=== PATIENT | male | born 1950 | race Two or more races ===

== ENCOUNTER 2025-02-02 09:15 | Inpatient (IN) | payer OTHER ==
[~2025-02-02] VITALS: Ht 162.6 cm; Wt 77.1 kg
[2025-02-23 10:09] LABS: BASO % 0.5 % (0.1-1.2); EOS # 0.16 (0.04-0.54); EOS % 2.6 % (0.7-7.0); LYMPH # 1.48 (1.18-3.74); LYMPH % 24.1 % (19.3-53.1); MEAN PLATELET VOLUME 12.60 fl (9.4-12.4); MONO # 0.76 (0.24-0.82); NEUT # 3.69 (1.56-6.13); NEUT % 60.2 % (34.0-71.1); RED CELL DISTRIBUTION WIDTH 13.3 % (11.6-14.4)
[2025-02-23 10:10] LABS: URINE APPEARANCE Clear; URINE BILIRRUBIN Negative (NEGATIVE); URINE BLOOD Negative; URINE COLOR Yellow; URINE GLUCOSE Negative (NEGATIVE); URINE KETONE Negative (NEGATIVE); URINE LEUKOCYTE Negative; URINE NITRATE Negative; URINE PROTEIN Negative (NEGATIVE); URINE UROBILINOGEN 0.2 E.U./dl
[2025-02-23 10:13] LABS: URINE BACTERIA 4.7 uL (0.0-1933); URINE RBC 3.5 uL (0.0-20.8)
[2025-02-23 10:14] LABS: MONO % 12.4 % (4.7-12.5)
[2025-02-23] MEDS ORDERED: ROSUVASTATIN CA40 MG PO (10:20)
[2025-02-23] MEDS ORDERED: NORVASC2.5 MG PO (10:20)
[2025-02-23] MEDS ORDERED: ALTACE2.5 MG PO (10:20)
[2025-02-23] MEDS ORDERED: METFORMIN HCL500 M3 PO (10:21)
[2025-02-23] MEDS ORDERED: HYDROCHLOROTHIA25 MG PO (10:21)
[2025-02-23 10:27] VITALS: BP 160/60
[2025-02-23 10:32] LABS: INR 0.99
[2025-02-23 11:13] LABS: ALT/SGPT 31.0 U/L (12-78); AST/SGOT 30.0 U/L (15-37); BILIRUBIN TOTAL 0.52 mg/dL (0.3-1.2); BUN CREA RATIO 25.0 (7.0-25.0); CREATININE SERUM 0.72 mg/dL (0.70-1.30); GFR 106.14; GLOBULINA 3.7 G/DL (2.4-3.5); GLUCOSE FASTING 99.0 mg/dL (65-100); OSMOLALITY SERUM 287.0 MOSM/KG (275-295)
[2025-02-23 11:58] LABS: URINE CAST 0.00 uL (0.0-1.40); URINE EPITHELIAL CELLS 0.9 uL (0.0-38.8); URINE WBC 0.9 uL (0.0-23.2)
[2025-03-02] MEDS ORDERED: CEFTRIAXONE SODIUM 2,000 MG VIAL IV ONE (09:45)
[2025-03-02] MEDS ORDERED: BUPIVACAINE HCL 30 ML VIAL IJ ONE (09:45)
[2025-03-02] MEDS ORDERED: LIDOCAINE HCL 1%/EPINEPHRINE 20ML VIAL IJ ONE (09:45)
[2025-03-02] MEDS ORDERED: METRONIDAZOLE/SODIUM CHLORIDE 500 MG/100 ML PIGGYBACK IV ONE (09:45)
[2025-03-02] MEDS ORDERED: MORPHINE SULFATE 4 MG/ML VIAL IV ONE (11:45)
[2025-03-02] MEDS ORDERED: ONDANSETRON HCL 2 MG/ML VIAL IV PRN (12:15)
[2025-03-02] MEDS ORDERED: 0.9 % SODIUM CHLORIDE 1,000 ML IV SCH (12:15)
[2025-03-02] MEDS ORDERED: DEXTROSE 50 % IN WATER 0.5 G/ML VIAL IV PRN (12:15)
[2025-03-02] MEDS ORDERED: OxyCODONE HCL 5 MG TABLET (ROXICODONE) PO PRN (12:15)
[2025-03-02] MEDS ORDERED: MORPHINE SULFATE 4 MG/ML CARTRIDGE IV PRN (12:15)
[2025-03-02] MEDS ORDERED: HYOSCYAMINE SULFATE 0.125 MG TAB.SUBL SL SCH (13:00)
[2025-03-02] MEDS ORDERED: SIMETHICONE 125 MG CAPSULE PO SCH (13:00)
[2025-03-02 13:15] LABS: BASO % 0.2 % (0.1-1.2); EOS # 0.01 (0.04-0.54); EOS % 0.1 % (0.7-7.0); LYMPH # 0.69 (1.18-3.74); LYMPH % 5.7 % (19.3-53.1); MEAN PLATELET VOLUME 12.50 fl (9.4-12.4); MONO # 0.53 (0.24-0.82); MONO % 4.4 % (4.7-12.5); NEUT # 10.81 (1.56-6.13); NEUT % 89.4 % (34.0-71.1); RED CELL DISTRIBUTION WIDTH 13.2 % (11.6-14.4)
[2025-03-02] MEDS ORDERED: ACETAMINOPHEN 500 MG GEL..CAP PO SCH (14:00)
[2025-03-02 15:25] VITALS: BP 148/72; O2SAT 95
[2025-03-02] MEDS ORDERED: ENALAPRILAT DIHYDRATE 1.25 MG/ML VIAL IV PRN (16:30)
[2025-03-02] MEDS ORDERED: ROSUVASTATIN CALCIUM 20 MG TABLET PO SCH (17:00)
[2025-03-02] MEDS ORDERED: GABAPENTIN 300 MG CAPSULE PO SCH (17:00)
[2025-03-02] MEDS ORDERED: CELECOXIB 200 MG CAPSULE PO SCH (17:00)
[2025-03-02] MEDS ORDERED: POLYETHYLENE GLYCOL 3350 17 GM BLIST.PACK PO SCH (17:00)
[2025-03-02] MEDS ORDERED: METOCLOPRAMIDE HCL 5 MG/ML VIAL IV SCH (17:00)
[2025-03-02] MEDS ORDERED: FAMOTIDINE/PF 20 MG/2 ML VIAL IV PUSH SCH (21:00)
[2025-03-03 00:40] VITALS: BP 124/64; O2SAT 100
[2025-03-03 07:00] LABS: BASO % 0.3 % (0.1-1.2); EOS # 0.06 (0.04-0.54); EOS % 0.6 % (0.7-7.0); LYMPH # 1.27 (1.18-3.74); LYMPH % 13.7 % (19.3-53.1); MEAN PLATELET VOLUME 13.70 fl (9.4-12.4); MONO # 0.90 (0.24-0.82); MONO % 9.7 % (4.7-12.5); NEUT # 6.99 (1.56-6.13); NEUT % 75.4 % (34.0-71.1); RED CELL DISTRIBUTION WIDTH 13.4 % (11.6-14.4)
[2025-03-03 07:29] LABS: BUN CREA RATIO 22.0 (7.0-25.0); CREATININE SERUM 0.89 mg/dL (0.70-1.30); GFR 83.11; GLUCOSE FASTING 75.0 mg/dL (65-100); OSMOLALITY SERUM 288.0 MOSM/KG (275-295)
[2025-03-03 08:00] VITALS: BP 125/64; O2SAT 99
[2025-03-03] MEDS ORDERED: HYDROCHLOROTHIAZIDE 25 MG TABLET PO SCH (09:00)
[2025-03-03] MEDS ORDERED: AMLODIPINE BESYLATE 2.5 MG TABLET PO SCH (09:00)
[2025-03-03] MEDS ORDERED: LACTULOSE 20 G/30 ML BLIST.PACK PO SCH (09:00)
[2025-03-03] MEDS ORDERED: LACTOBACILLUS ACIDOPHILUS 1 CAP CAP PO SCH (09:00)
[2025-03-03] MEDS ORDERED: RAMIPRIL 2.5 MG CAPSULE PO SCH (09:00)
[2025-03-03 16:42] VITALS: BP 115/63
[2025-03-03 16:53] VITALS: BP 115/63; O2SAT 95
[2025-03-03] MEDS ORDERED: ENOXAPARIN SODIUM 40 MG/0.4 ML SYRINGE SUBCUTANEO SCH (17:00)
[2025-03-04 02:22] VITALS: BP 149/63; O2SAT 93
[2025-03-04 08:58] VITALS: BP 133/70; O2SAT 97
[2025-03-04] MEDS ORDERED: ENOXAPARIN SODIUM 40 MG/0.4 ML SYRINGE SUBCUTANEO SCH (09:00)
[2025-03-04 16:20] VITALS: BP 106/64; O2SAT 95
== END 2025-03-04 17:55 | disposition home or self-care (01) | DRG 330 ==
LOC: O/R 03-02 07:46 → SURH 03-02 09:00 → SURG 03-02 11:59 → SURH 03-02 16:45 → SURG 03-04 17:55
PROVIDERS: ADMIT Colon & Rectal Surgery; ATTEND Colon & Rectal Surgery
PROC: 07BC4ZZ Excision of Pelvis Lymphatic, Percutaneous Endoscopic Approach (ICD-10-PCS; 2025-03-02)
PROC: 07BB4ZZ Excision of Mesenteric Lymphatic, Percutaneous Endoscopic Approach (ICD-10-PCS; 2025-03-02)
PROC: 8E0W4CZ Robotic Assisted Procedure of Trunk Region, Percutaneous Endoscopic Approach (ICD-10-PCS; 2025-03-02)
PROC: 0DTF4ZZ Resection of Right Large Intestine, Percutaneous Endoscopic Approach (ICD-10-PCS; principal; 2025-03-02 16:45)
DX: D12.2 Benign neoplasm of ascending colon (principal); K92.1 Melena; R59.0 Localized enlarged lymph nodes; I10 Essential (primary) hypertension; E11.9 Type 2 diabetes mellitus without complications; Z82.49 Family history of ischemic heart disease and other diseases of the circulatory system; Z79.84 Long term (current) use of oral hypoglycemic drugs
CPT/HCPCS: 44204; 38570; 38571; S2900